=== PATIENT | female | born 1955 | race Caucasian/White ===

== ENCOUNTER 2024-09-17 08:30 | Emergency (ER) | payer MEDICARE, SELFPAY ==
[2024-09-17 08:50] VITALS: BP 117/101
[2024-09-17 09:49] LABS: % Basophils 0.1 % (0-2); % Immature Granulocytes 0.4 % (0-0.5); % Lymphocytes 17.3 % (20.5-51.1); % Monocytes 5.3 % (1.7-9.3); % Neutrophils 75.9 % (42.2-75.2); Absolute Eosinophils 0.1 10^3/uL (0-0.7); Absolute Lymphocytes 1.2 10^3/uL (1.2-3.4); Absolute Monocytes 0.4 10^3/uL (0.1-0.6); Absolute Neutrophils 5.4 10^3/uL (1.4-6.5); Hematocrit 39.8 % (37.0-47.0); Hemoglobin 13.6 g/dL (12.0-16.0); Mean Corp Hgb Conc. 34.2 g/dL (33.0-37.0); Mean Corpuscular Volume 84.9 fL (81.0-99.0); Mean Platelet Volume 8.4 fL (7.4-10.4); Nucleated Red Blood Cells % 0 %; Platelet Count 165 10^3/uL (130-400); Red Blood Cell Count 4.69 10^6/uL (4.20-5.40); White Blood Cell Count 7.1 10^3/uL (4.8-10.8)
[2024-09-17 10:00] LABS: ALT (SGPT) 18 U/L (0-35); AST (SGOT) 22 U/L (14-36); Albumin 4.5 g/dl (3.5-5.0); Alkaline Phosphatase 115 U/L (38-126); Blood Urea Nitrogen 22 mg/dl (7-17); Calcium 9.7 mg/dl (8.4-10.2); Carbon Dioxide 28 mmol/L (22-30); Chloride 107 mmol/L (98-107); Glucose 87 mg/dl (70-99); Potassium 4.5 mmol/L (3.5-5.1); Sodium 142 mmol/L (135-145); Total Bilirubin 0.4 mg/dl (0.2-1.3); Total Protein 6.6 g/dl (6.3-8.2); eGFR > 60.00
[2024-09-17 10:30] LABS: Lipase 146 U/L (23-300)
[2024-09-17 11:20] LABS: Urine Albumin Negative (Neg - Trace); Urine Bilirubin Negative (Negative); Urine Character Clear (Clear); Urine Color Yellow; Urine Glucose Negative (Negative); Urine Ketone Negative (Negative); Urine Leukocyte 3+ (Negative); Urine Nitrite Negative (Negative); Urine Occult Blood 1+ (Negative); Urine Specific Gravity 1.015 (<1.030); Urine Urobilinogen Negative (Neg - 1+)
[2024-09-17 11:33] LABS: Urine Bacteria Many (Negative); Urine White Cell 26-30 /HPF (0-5)
--- NOTE | 2024-09-17 12:35 | ED.GENMED ---
History of Present Illness
General
Chief Complaint: Abdominal Pain
Source: patient
Exam Limitations: none
Time Seen by Provider: 09/17/24 09:14
Nursing documentation reviewed up to this point in time: agreed with
History of Present Illness
History of Present Illness:
Note:
CHIEF COMPLAINT(S)
Right-sided back pain.
HISTORY OF PRESENT ILLNESS
The patient is a 69-year-old female presenting with right-sided back pain, described as being on and off. The pain has progressively worsened over the past few days, becoming more intense compared to previous episodes. She reports a significant
exacerbation of symptoms when she gets up and starts walking. The patient also experiences tenderness around the pelvis and stomach. She received a corticosteroid injection in the right hip two months ago, which did not alleviate the pain. The
patient has not sought any further medical evaluation since. She denies any vomiting, urinary issues, or breathing difficulties.
CHRONIC MEDICAL CONDITIONS SIGNIFICANTLY AFFECTING CARE
- Hypertension
- Diabetes Mellitus
- Glaucoma
ALLERGIES
- Sulfur-based creams
PAST SURGICAL HISTORY
- Two sections
- Hysterectomy
- Cholecystectomy (gallbladder removal)
- Ganglion removal from the wrist
MEDICATIONS
- Zoloft (Sertraline) 100 mg
- Trazodone 50 mg at night
- Xalatan (Latanoprost) for glaucoma
- Lisinopril 20 mg twice daily
- Carvedilol 25 mg twice daily
- Amlodipine 10 mg daily
- Metformin for diabetes
- Lantus (Insulin glargine)
- Ozempic (Semaglutide) recently increased to 1.0 mg
- Cyclobenzaprine 10 mg for back pain
- Ranitidine for reflux
- Aspirin 81 mg
REVIEW OF SYSTEMS
- Gastrointestinal: Occasional abdominal tenderness
- Musculoskeletal: Right-sided back pain, tenderness, exacerbated by walking
- Eyes: Regular on Xalatan for glaucoma
- General: No fever, progressive worsening of symptoms over recent days
PHYSICAL EXAM
- Nursing notes reviewed and vital signs reviewed.
- Head, Eyes, Nose, and Tongue: Pupils equal, round, and reactive to light; extraocular muscles intact.
- Lungs: Clear to auscultation bilaterally.
- Cardiovascular: Regular rate and rhythm, S1 and S2 present, no murmurs, normal distal pulses in all extremities.
- Abdomen: Tenderness in the right lower quadrant, no guarding detected, normal bowel sounds.
- General: Elevated Body Mass Index.
PROBLEM LIST
Acute:
- Right-sided back pain
Chronic:
- Hypertension
- Diabetes Mellitus
- Glaucoma
PLAN
- Review blood tests
- Monitor for symptoms potentially related to recent Ozempic dose adjustment
- Consider further imaging or examination if symptoms persist or worsen
DIFFERENTIAL DIAGNOSIS
The Differential Diagnosis includes, in no particular order and is not limited to:
- Nerve impingement
- Osteoarthritis
- Spinal stenosis
- Muscular strain
- Visceral pain referred from abdominal organs
- Renal colic
- Deep vein thrombosis
- Fracture or bone lesions
- Inflammatory conditions
- Myofascial pain syndrome
CARE-UPDATE
09/17/24 - 12:35
The patient was reassessed after a CT scan, which indicated signs of colitis and a urinary tract infection (UTI), but no signs of appendicitis. The treatment plan includes initiating antibiotics for the UTI and providing analgesics (Tylenol) for
pain management. The patient denies any allergy to pain medications. There is no indication for surgical intervention at present. The plan for pain management includes advising the patient to return if there is an escalation in symptoms, such as
fever or increased discomfort. A prescription has been sent to the pharmacy. The patient is encouraged to follow up with their primary care physician and consider scheduling an overdue colonoscopy with a linoleum tile floor layer.
Disposition:
SUMMARY OF ENCOUNTER
The patient, a 69-year-old female, presented with worsening right-sided back pain, which has been progressively intensifying. She reported significant tenderness around the pelvis and stomach. A CT scan revealed signs of colitis and a urinary tract
infection (UTI), but no appendicitis. The treatment plan included initiating antibiotics for the UTI and providing analgesics for pain management.
ASSESSMENT
The patients symptoms and CT findings suggest colitis coupled with a UTI. Back pain may be exacerbated by these conditions.
PLAN
- Initiate antibiotic treatment with Keflex for the urinary tract infection.
- Prescribe Tylenol for pain management.
- Advise the patient to monitor symptoms and return if there is an escalation, such as fever or increased discomfort.
- Encourage follow-up with the primary care physician and to schedule a long-overdue colonoscopy with a linoleum tile floor layer.
INDEPENDENT INTERPRETATION OF TESTS
- My independent interpretation of the CT scan shows signs of colitis and a urinary tract infection, with no evidence of appendicitis.
FOLLOW-UP INSTRUCTIONS
The patient should follow up with their primary care physician
MEDICATION RECONCILIATION
- Keflex prescribed for UTI treatment.
- Tylenol for pain relief.
MEDICAL DECISION MAKING
Number and Complexity of Problems Addressed: The patient presented with acute concerns of colitis and UTI along with chronic complaints of right-sided back pain, linked with exacerbation due to gastrointestinal issues, assessed through CT imaging.
Data: CT imaging was evaluated and indicated colitis and UTI, guiding the decision for antibiotic therapy and pain management.
Risk: Consideration was given for potential hospitalization or escalation of initial care, with follow-up plans established in conjunction with primary care and a linoleum tile floor layer.
Past History
Past History
ED Past Medical History: HTN, IDDM, Psychiatric and Other (Migraines, fibromyalgia)
ED Past Surgical History: Cholecystectomy
Social History
Tobacco: Non-smoker
Personal:
Phy Exam
Physical Exam
Physical Exam:
.
Course
Orders/Labs/Results
Orders:
Orders
09/17/24 09:26
CT Abd/Pel (IV only)-[facility] only Urgent
Comment:
Reason For Exam: RLQ abd pain worse over past 4 days
09/17/24 09:34
Complete Blood Count/With Diff Urgent
Comprehensive Metabolic Panel Urgent
Lipase Urgent
09/17/24 11:07
Urinalysis Reflex To Culture Urgent
Date Specimen was Collected: 09/17/24
Time Specimen was Collected: 10:40
Urine Microscopic Reflex Cult Urgent
Urine Culture Urgent
NAVA Source: U
Specimen Description:
Date Specimen was Collected: 09/17/24
Time Specimen was Collected: 10:40
Abnormal Lab Results
09/17/24 09/17/24
09:34 11:07
Neutrophils % 75.9 H %
(42.2-75.2)
Lymphocytes % 17.3 L %
(20.5-51.1)
BUN 22 H mg/dl
(7-17)
Ur Occult Blood Reflex 1+ A
(Negative)
Leukocyte Esterase Rfl 3+ A
(Negative)
Urine RBC 3-6 A /HPF
(0-2)
Urine WBC (Reflex) 26-30 A /HPF
(0-5)
Urine Bacteria (Reflex) Many A
(Negative)
09/17/24 09:34
09/17/24 09:34
Vital Signs
Initial and Last Documented VS:
Initial Vital Signs
Temp Pulse Resp BP Pulse Ox
98.4 F 67 18 117/101 100
09/17/24 08:50 09/17/24 08:50 09/17/24 08:50 09/17/24 08:50 09/17/24 08:50
Last Documented Vital Signs
Temp Pulse Resp BP Pulse Ox
98.4 F 67 18 117/101 100
09/17/24 08:50 09/17/24 08:50 09/17/24 08:50 09/17/24 08:50 09/17/24 08:50
*Radiology
Radiology exam reviewed: radiology read reviewed
*Pulse Oximetry
Patient hypoxic: no (100% room air)
*Critical Care Note
Total Time (30-74mins, 75-104mins- exclusive of procedures): Not Applicable
ED Attending Note
-
Portions of this chart may have been created with voice recognition software.� Occasional wrong word or��sound alike� substitutions may have occurred due to the inherent limitations of voice recognition software.
Discharge Plan
Departure
Patient Disposition: Home (Routine Discharge)
Date of Disposition: 09/17/24
Time of Disposition: 12:40
Patient with high blood pressure during this ER visit?: No
Condition: Good
Discharge Problem:
UTI (urinary tract infection), Colitis
Instructions: Urinary tract infections in adults, Colitis
Prescriptions:
New
cephalexin 500 mg capsule
500 mg PO BID 7 Days Qty: 14 0RF
No Action
multivitamin 1 EACH tablet
1 ea PO DAILY
metformin 500 MG tablet
500 mg PO DAILY
insulin glargine [Lantus U-100 Insulin] 1,000 UNITS/10 ML solution
40 units SC HS
trazodone 50 MG tablet
50 mg PO HS
lisinopril 20 MG tablet
20 mg PO DAILY
sertraline [Zoloft] 100 MG tablet
100 mg PO DAILY
aspirin [Adult Aspirin Regimen] 81 MG tablet,delayed release (DR/EC)
81 mg PO DAILY
pantoprazole 40 MG tablet,delayed release (DR/EC)
40 mg PO DAILY
brimonidine [Alphagan P] 1 DROP drops
2 drp ophthalmic (eye) BID
fenofibrate nanocrystallized [Tricor] 145 MG tablet
145 mg PO DAILY
tafluprost (PF) [Zioptan (PF)] 1 EACH dropperette
1 ea OP HS
L.acidoph,paracasei,B.animalis 1 EACH capsule
1 ea PO DAILY
metoprolol tartrate 25 MG tablet
25 mg PO BID Qty: 30 0RF
Referrals:
Norbert Abdi DO [Family Provider, Family Practice] - Call in 1-3 days for appt
Interventions
Interventions:
*Risk Screen - Suicide Last Done: 09/17/24 08:50
*General Assessment Last Done: 09/17/24 08:50
*Neglect/Abuse Screening Last Done: 09/17/24 08:50
Discharge Date and Time
Print Language: TELUGU
== END 2024-09-17 13:07 | disposition home or self-care (01) ==
LOC: EMR 08:30
PROVIDERS: EMERGENCY PHYSICIAN Emergency Medicine; FAMILY PHYSICIAN Family Medicine
DX: N39.0 Urinary tract infection, site not specified (principal); K52.9 Noninfective gastroenteritis and colitis, unspecified; I10 Essential (primary) hypertension; E11.9 Type 2 diabetes mellitus without complications; H40.9 Unspecified glaucoma; M79.7 Fibromyalgia; Z79.899 Other long term (current) drug therapy; Z90.49 Acquired absence of other specified parts of digestive tract; Z90.710 Acquired absence of both cervix and uterus
CPT/HCPCS: 99284; 74177; 80053; 81003; 81015; 83690; 85025; 87077; 87086; Q9967